=== PATIENT | female | born 1945 | race Caucasian/White ===

== ENCOUNTER 2020-08-23 21:00 | Emergency (ER) | payer MEDICARE, BC ==
[2020-08-23 22:04] LABS: HEMATOCRIT 36.2 % (37.0-47.0); HEMOGLOBIN 11.7 g/dL (12.5-16.0); MEAN CELL VOLUME 83 fl (78-100); MEAN CORPUSCULAR HEMOGLOBIN 27 pg (27-31); MEAN CORPUSCULAR HGB CONC 32 g/dL (33-37); MEAN PLATELET VOLUME 9.8 fl (7.4-10.4); PLATELET COUNT 403 K/mm3 (130-400); RED BLOOD COUNT 4.38 M/mm3 (4.10-5.30); RED CELL DISTRIBUTION WIDTH 14.6 % (11.5-14.5); WHITE BLOOD COUNT 13.6 K/mm3 (4.8-10.8)
[2020-08-23] MEDS ORDERED: LEVOTHYROXINE100 MC1 PO (22:18)
[2020-08-23] MEDS ORDERED: ATORVASTATIN CA40 MG PO (22:18)
[2020-08-23] MEDS ORDERED: VERAPAMIL HCL120 M3 PO (22:18)
[2020-08-23] MEDS ORDERED: LISINOPRIL AND1 TA1 PO (22:18)
[2020-08-23] MEDS ORDERED: XARELTO20 MG PO (22:19)
[2020-08-23 22:23] LABS: ALBUMIN 3.8 g/dL (3.4-4.8); POTASSIUM 4.3 mmol/L (3.5-5.1)
[2020-08-23 22:24] LABS: CALCIUM 9.1 mg/dL (8.3-10.5)
[2020-08-23 22:25] LABS: TOTAL PROTEIN 6.5 g/dL (6.2-8.1)
[2020-08-23 22:27] LABS: TOTAL BILIRUBIN 0.5 mg/dL (0.2-1.2)
[2020-08-23 22:34] LABS: URINE APPEARANCE HAZY; URINE COLOR YELLOW
[2020-08-23 22:35] LABS: LYMPHOCYTE 14 % (20-51)
[2020-08-23 22:35] LABS: PH-URINE 6.5 (5.0 - 8.0); URINE BILIRUBIN NEGATIVE (NEGATIVE); URINE BLOOD NEGATIVE (NEGATIVE); URINE GLUCOSE NEGATIVE (NEGATIVE); URINE KETONE NEGATIVE (NEGATIVE); URINE LEUKOCYTE ESTERASE 1+ (NEGATIVE); URINE NITRATE NEGATIVE (NEGATIVE); URINE PROTEIN(semi-quant) TRACE mg/dL (NEGATIVE); URINE UROBILINOGEN NORMAL (NORMAL); URINE WBC 31-50 /hpf (0-3)
[2020-08-23 22:36] LABS: MONOCYTE 11 % (3-10); NEUTROPHILS 74 % (42-75)
[2020-08-24] MEDS ORDERED: CIPRO500 M1 PO (01:19)
[2020-08-24 01:30] VITALS: BP 126/59
== END 2020-08-24 01:30 | disposition home or self-care (01) ==
LOC: ED 21:00
PROVIDERS: Nurse Practitioner Family
DX: I48.91 Unspecified atrial fibrillation (principal); N39.0 Urinary tract infection, site not specified; Z86.73 Personal history of transient ischemic attack (TIA), and cerebral infarction without residual deficits; Z88.5 Allergy status to narcotic agent; Z79.01 Long term (current) use of anticoagulants
CPT/HCPCS: J7040

== ENCOUNTER → 2020-10-04 | Outpatient (CLI) | payer MEDICARE, BC, OTHER ==
[~2020-10-04] MED LIST: ATORVASTATIN CA40 MG PO; CIPRO500 M1 PO; LEVOTHYROXINE100 MC1 PO; LISINOPRIL AND1 TA1 PO; VERAPAMIL HCL120 M3 PO; XARELTO20 MG PO
== END ==
LOC: LAB 08:57
DX: R10.33 Periumbilical pain (principal)

== ENCOUNTER 2020-10-28 11:41 | Emergency (ER) | payer MEDICARE, BC, OTHER ==
[2020-10-28 12:26] LABS: EOS % 2.3 % (1.0-5.0); HEMATOCRIT 41.3 % (37.0-47.0); HEMOGLOBIN 13.5 g/dL (12.5-16.0); MEAN CELL VOLUME 83 fl (78-100); MEAN CORPUSCULAR HEMOGLOBIN 27 pg (27-31); MEAN CORPUSCULAR HGB CONC 33 g/dL (33-37); PLATELET COUNT 342 K/mm3 (130-400); RED BLOOD COUNT 4.97 M/mm3 (4.10-5.30); RED CELL DISTRIBUTION WIDTH 15.2 % (11.5-14.5); WHITE BLOOD COUNT 7.4 K/mm3 (4.8-10.8)
[2020-10-28 12:27] LABS: EOS # 0.2 (0.04-0.40); LYMPH# 2.1 (1.50-4.00); MONO # 0.7 (0.20-0.80); NEU # 4.6 (1.40-6.50)
[2020-10-28 12:28] LABS: ALBUMIN 3.8 g/dL (3.4-4.8); POTASSIUM 3.5 mmol/L (3.5-5.1)
[2020-10-28 12:29] LABS: CALCIUM 9.5 mg/dL (8.3-10.5)
[2020-10-28 12:30] LABS: GLUCOSE 135 mg/dL (65-105); SODIUM 138 mmol/L (136-145)
[2020-10-28 12:32] LABS: CARBON DIOXIDE 24 mmol/L (23-31); TOTAL BILIRUBIN 0.9 mg/dL (0.2-1.2)
[2020-10-28 12:37] LABS: ALT/SGPT 17 U/L (0-55)
[2020-10-28 12:38] LABS: AST-SGOT 19 U/L (5-34)
[2020-10-28 12:49] LABS: TROPONIN-I < 0.03 ng/mL (<0.030)
[2020-10-28 16:12] LABS: URINE APPEARANCE CLEAR; URINE COLOR YELLOW
[2020-10-28 16:13] LABS: URINE BILIRUBIN NEGATIVE (NEGATIVE); URINE BLOOD NEGATIVE (NEGATIVE); URINE GLUCOSE NEGATIVE (NEGATIVE); URINE KETONE NEGATIVE (NEGATIVE); URINE LEUKOCYTE ESTERASE NEGATIVE (NEGATIVE); URINE NITRATE NEGATIVE (NEGATIVE); URINE PROTEIN(semi-quant) NEGATIVE (NEGATIVE); URINE UROBILINOGEN NORMAL (NORMAL); URINE WBC 0-1 /hpf (0-3)
[2020-10-28 16:33] VITALS: BP 135/72
[2020-10-28] MEDS ORDERED: PROTONIX20 M1 PO (16:34)
== END 2020-10-28 17:04 ==
LOC: ED 11:41
PROVIDERS: Nurse Practitioner
DX: K21.9 Gastro-esophageal reflux disease without esophagitis (principal); Z91.89 Other specified personal risk factors, not elsewhere classified; I48.91 Unspecified atrial fibrillation; I10 Essential (primary) hypertension; E78.5 Hyperlipidemia, unspecified; Z87.891 Personal history of nicotine dependence; Z86.73 Personal history of transient ischemic attack (TIA), and cerebral infarction without residual deficits; Z88.5 Allergy status to narcotic agent; Z88.6 Allergy status to analgesic agent; Z88.8 Allergy status to other drugs, medicaments and biological substances; Z79.01 Long term (current) use of anticoagulants; Z79.890 Hormone replacement therapy

== ENCOUNTER → 2020-10-29 | Outpatient (CLI) | payer MEDICARE, BC, OTHER ==
[2020-10-28 16:33] VITALS: BP 135/72
[~2020-10-29] MED LIST changes: +AFRIN PUMPMIST15 ML NS; +CEPHALEXIN250 MG PO; +CLARITIN10 M1 PO; +MORGIDOX 1X100100 MG PO; +PRILOSEC 20MG20 MG PO; +PROTONIX20 M1 PO; +[UNRECOGNIZED DRUG - OTHER]
== END ==
LOC: RAD 15:45 → VAS 15:58
DX: R07.9 Chest pain, unspecified (principal)

== ENCOUNTER → 2020-11-08 | Outpatient (CLI) | payer MEDICARE, BC, OTHER ==
[2020-10-28 16:33] VITALS: BP 135/72
[2020-11-08 09:42] LABS: POTASSIUM 4.1 mmol/L (3.5-5.1)
[2020-11-08 09:43] LABS: ALBUMIN 4.2 g/dL (3.4-4.8)
[2020-11-08 09:44] LABS: CALCIUM 10.3 mg/dL (8.3-10.5)
[2020-11-08 09:45] LABS: TOTAL PROTEIN 7.7 g/dL (6.2-8.1)
[2020-11-08 09:47] LABS: HEMOGLOBIN 13.6 g/dL (12.5-16.0); MEAN CELL VOLUME 86 fl (78-100); MEAN CORPUSCULAR HEMOGLOBIN 27 pg (27-31); MEAN CORPUSCULAR HGB CONC 32 g/dL (33-37); MEAN PLATELET VOLUME 10.5 fl (7.4-10.4); PLATELET COUNT 338 K/mm3 (130-400); RED BLOOD COUNT 5.01 M/mm3 (4.10-5.30); RED CELL DISTRIBUTION WIDTH 16.3 % (11.5-14.5); TOTAL BILIRUBIN 0.7 mg/dL (0.2-1.2); WHITE BLOOD COUNT 8.9 K/mm3 (4.8-10.8)
[2020-11-08 10:02] LABS: LYMPHOCYTE 26 % (20-51); MONOCYTE 9 % (3-10); NEUTROPHILS 64 % (42-75)
== END ==
LOC: LAB 09:11
PROVIDERS: Physician Assistant
DX: Z00.00 Encounter for general adult medical examination without abnormal findings (principal); E78.5 Hyperlipidemia, unspecified; R73.9 Hyperglycemia, unspecified; E03.9 Hypothyroidism, unspecified; I10 Essential (primary) hypertension

== ENCOUNTER 2020-11-20 09:42 | Outpatient (RCR) | payer MEDICARE, BC, OTHER ==
[~2020-11-20 09:42] MED LIST changes: -AFRIN PUMPMIST15 ML NS; -CEPHALEXIN250 MG PO; -CLARITIN10 M1 PO; -MORGIDOX 1X100100 MG PO; -PRILOSEC 20MG20 MG PO; -[UNRECOGNIZED DRUG - OTHER]
== END 2021-02-18 | disposition home or self-care (01) ==
LOC: PT
DX: R26.9 Unspecified abnormalities of gait and mobility (principal)

== ENCOUNTER → 2020-11-22 | Outpatient (CLI) | payer MEDICARE, BC, OTHER ==
[2020-10-28 16:33] VITALS: BP 135/72
[~2020-11-22] MED LIST changes: +AFRIN PUMPMIST15 ML NS; +CEPHALEXIN250 MG PO; +CLARITIN10 M1 PO; +MORGIDOX 1X100100 MG PO; +PRILOSEC 20MG20 MG PO; +[UNRECOGNIZED DRUG - OTHER]
== END ==
LOC: RAD 13:29
DX: M17.11 Unilateral primary osteoarthritis, right knee (principal); M11.261 Other chondrocalcinosis, right knee; Z96.651 Presence of right artificial knee joint

== ENCOUNTER 2020-12-12 09:16 | Outpatient (RCR) | payer MEDICARE, BC, OTHER ==
[~2020-12-12 09:16] MED LIST changes: -AFRIN PUMPMIST15 ML NS; -CEPHALEXIN250 MG PO; -CLARITIN10 M1 PO; -MORGIDOX 1X100100 MG PO; -PRILOSEC 20MG20 MG PO; -[UNRECOGNIZED DRUG - OTHER]
== END 2020-12-27 15:49 ==
LOC: OPPGERO 09:16
DX: F43.21 Adjustment disorder with depressed mood (principal); F43.10 Post-traumatic stress disorder, unspecified; E03.9 Hypothyroidism, unspecified; I10 Essential (primary) hypertension; I48.91 Unspecified atrial fibrillation; Z90.710 Acquired absence of both cervix and uterus; Z96.659 Presence of unspecified artificial knee joint

== ENCOUNTER 2020-12-30 09:18 | Outpatient (RCR) | payer MEDICARE, BC, OTHER | END 2021-01-24 15:57 | disposition home or self-care (01) | LOC: OPPGERO 09:18 | DX: F43.9 Reaction to severe stress, unspecified (principal); E03.9 Hypothyroidism, unspecified; F41.9 Anxiety disorder, unspecified; G31.84 Mild cognitive impairment of uncertain or unknown etiology; I10 Essential (primary) hypertension; T14.90XA Injury, unspecified, initial encounter; I48.91 Unspecified atrial fibrillation; Z86.73 Personal history of transient ischemic attack (TIA), and cerebral infarction without residual deficits; Z63.4 Disappearance and death of family member; Z87.440 Personal history of urinary (tract) infections; Z86.12 Personal history of poliomyelitis; Z90.710 Acquired absence of both cervix and uterus; Z98.890 Other specified postprocedural states; Z96.659 Presence of unspecified artificial knee joint ==

== ENCOUNTER 2021-01-28 09:48 | Outpatient (RCR) | payer MEDICARE, BC, OTHER | END 2021-02-26 15:27 | disposition home or self-care (01) | LOC: OPPGERO 09:48 | DX: F43.8 Other reactions to severe stress (principal); F43.21 Adjustment disorder with depressed mood; E03.9 Hypothyroidism, unspecified; I10 Essential (primary) hypertension; I48.91 Unspecified atrial fibrillation; Z86.73 Personal history of transient ischemic attack (TIA), and cerebral infarction without residual deficits; Z86.12 Personal history of poliomyelitis; Z98.890 Other specified postprocedural states; Z90.710 Acquired absence of both cervix and uterus; Z96.659 Presence of unspecified artificial knee joint; Z63.4 Disappearance and death of family member; Z87.59 Personal history of other complications of pregnancy, childbirth and the puerperium ==

== ENCOUNTER 2021-02-27 09:16 | Outpatient (RCR) | payer MEDICARE, BC, OTHER | END 2021-03-28 22:27 | disposition home or self-care (01) | LOC: OPPGERO 09:16 | DX: F43.10 Post-traumatic stress disorder, unspecified (principal); F43.21 Adjustment disorder with depressed mood; E03.9 Hypothyroidism, unspecified; I10 Essential (primary) hypertension; I48.91 Unspecified atrial fibrillation; Z86.73 Personal history of transient ischemic attack (TIA), and cerebral infarction without residual deficits; Z90.710 Acquired absence of both cervix and uterus; Z63.4 Disappearance and death of family member ==

== ENCOUNTER 2021-03-19 13:02 | Outpatient (RCR) | payer MEDICARE, BC, OTHER ==
[2021-03-31] MEDS ORDERED: MORGIDOX 1X100100 MG PO (10:53)
[2021-04-02] MEDS ORDERED: PRILOSEC 20MG20 MG PO (13:04)
[2021-05-17] MEDS ORDERED: AFRIN PUMPMIST15 ML NS (22:02)
[2021-05-17] MEDS ORDERED: CLARITIN10 M1 PO (22:03)
[2021-05-17] MEDS ORDERED: [UNRECOGNIZED DRUG - OTHER] (22:08)
[2021-05-18] MEDS ORDERED: CEPHALEXIN250 MG PO (14:46)
== END 2021-06-17 | disposition home or self-care (01) ==
LOC: PT
DX: M62.81 Muscle weakness (generalized) (principal)

== ENCOUNTER 2021-03-31 04:56 | Outpatient (RCR) | payer MEDICARE, BC, OTHER ==
[2021-03-31] MEDS ORDERED: MORGIDOX 1X100100 MG PO (10:53)
[2021-04-02] MEDS ORDERED: PRILOSEC 20MG20 MG PO (13:04)
== END 2021-04-29 15:52 | disposition home or self-care (01) ==
LOC: OPPGERO 04:56
DX: F43.8 Other reactions to severe stress (principal); F43.10 Post-traumatic stress disorder, unspecified; E03.9 Hypothyroidism, unspecified; I10 Essential (primary) hypertension; I48.91 Unspecified atrial fibrillation; Z90.710 Acquired absence of both cervix and uterus; Z98.890 Other specified postprocedural states; Z87.440 Personal history of urinary (tract) infections; Z86.73 Personal history of transient ischemic attack (TIA), and cerebral infarction without residual deficits; Z63.4 Disappearance and death of family member; Z87.59 Personal history of other complications of pregnancy, childbirth and the puerperium

== ENCOUNTER 2021-03-31 07:46 | Emergency (ER) | payer MEDICARE, BC, OTHER ==
[2021-03-31 09:26] LABS: BASO # 0.04 (0.02-0.10); EOS # 0.17 (0.04-0.40); EOS % 1.2 % (1.0-5.0); HEMATOCRIT 43.5 % (37.0-47.0); LYMPH# 1.89 (1.50-4.00); MEAN CELL VOLUME 86 fl (78-100); MEAN CORPUSCULAR HEMOGLOBIN 28 pg (27-31); MEAN CORPUSCULAR HGB CONC 32 g/dL (33-37); MEAN PLATELET VOLUME 10.1 fl (7.4-10.4); MONO # 1.05 (0.20-0.80); PLATELET COUNT 386 K/mm3 (130-400); RED BLOOD COUNT 5.06 M/mm3 (4.10-5.30); RED CELL DISTRIBUTION WIDTH 14.2 % (11.5-14.5); WHITE BLOOD COUNT 13.8 K/mm3 (4.8-10.8)
[2021-03-31 09:31] LABS: ALBUMIN 4.1 g/dL (3.4-4.8)
[2021-03-31 09:32] LABS: POTASSIUM 3.8 mmol/L (3.5-5.1); SODIUM 136 mmol/L (136-145)
[2021-03-31 09:33] LABS: CALCIUM 10.1 mg/dL (8.3-10.5)
[2021-03-31 09:34] LABS: GLUCOSE 133 mg/dL (65-105); TOTAL PROTEIN 7.6 g/dL (6.2-8.1)
[2021-03-31 09:35] LABS: CARBON DIOXIDE 24 mmol/L (23-31)
[2021-03-31 09:36] LABS: TOTAL BILIRUBIN 0.7 mg/dL (0.2-1.2)
[2021-03-31 09:39] LABS: AST-SGOT 18 U/L (5-34)
[2021-03-31 09:39] LABS: URINE APPEARANCE CLOUDY; URINE COLOR YELLOW
[2021-03-31 09:40] LABS: ALT/SGPT 15 U/L (0-55)
[2021-03-31 09:40] LABS: URINE BILIRUBIN NEGATIVE (NEGATIVE); URINE BLOOD TRACE (NEGATIVE); URINE GLUCOSE NEGATIVE (NEGATIVE); URINE KETONE NEGATIVE (NEGATIVE); URINE LEUKOCYTE ESTERASE 1+ (NEGATIVE); URINE NITRATE NEGATIVE (NEGATIVE); URINE PROTEIN(semi-quant) TRACE mg/dL (NEGATIVE); URINE UROBILINOGEN NORMAL (NORMAL)
[2021-03-31 09:41] LABS: LIPASE 61 U/L (8-78)
[2021-03-31 09:41] LABS: URINE MUCUS PRESENT (NOT PRESENT)
[2021-03-31 09:51] LABS: TROPONIN-I < 0.03 ng/mL (<0.030)
[2021-03-31] MEDS ORDERED: MORGIDOX 1X100100 MG PO (10:53)
[2021-03-31 11:44] VITALS: BP 108/56
== END 2021-03-31 10:59 | disposition home or self-care (01) ==
LOC: ED 07:46
PROVIDERS: Family Medicine
DX: N39.0 Urinary tract infection, site not specified (principal); K30 Functional dyspepsia; I48.91 Unspecified atrial fibrillation; I10 Essential (primary) hypertension; E03.9 Hypothyroidism, unspecified; Z90.710 Acquired absence of both cervix and uterus; Z79.01 Long term (current) use of anticoagulants; Z79.899 Other long term (current) drug therapy; Z79.890 Hormone replacement therapy

== ENCOUNTER 2021-04-02 11:34 | Emergency (ER) | payer MEDICARE, BC, OTHER ==
[~2021-04-02 11:34] MED LIST changes: +MORGIDOX 1X100100 MG PO
[2021-04-02 12:14] LABS: BASO # 0.05 (0.02-0.10); EOS # 0.18 (0.04-0.40); EOS % 2.1 % (1.0-5.0); HEMATOCRIT 40.5 % (37.0-47.0); HEMOGLOBIN 13.2 g/dL (12.5-16.0); MEAN CELL VOLUME 85 fl (78-100); MEAN CORPUSCULAR HEMOGLOBIN 28 pg (27-31); MEAN CORPUSCULAR HGB CONC 33 g/dL (33-37); MEAN PLATELET VOLUME 9.8 fl (7.4-10.4); MONO # 0.85 (0.20-0.80); NEU # 5.45 (1.40-6.50); PLATELET COUNT 347 K/mm3 (130-400); RED BLOOD COUNT 4.76 M/mm3 (4.10-5.30); RED CELL DISTRIBUTION WIDTH 14.1 % (11.5-14.5); WHITE BLOOD COUNT 8.4 K/mm3 (4.8-10.8)
[2021-04-02 12:21] LABS: POTASSIUM 4.1 mmol/L (3.5-5.1)
[2021-04-02 12:23] LABS: CALCIUM 10.2 mg/dL (8.3-10.5)
[2021-04-02 12:24] LABS: TOTAL PROTEIN 7.5 g/dL (6.2-8.1)
[2021-04-02 12:26] LABS: TOTAL BILIRUBIN 0.8 mg/dL (0.2-1.2)
[2021-04-02] MEDS ORDERED: PRILOSEC 20MG20 MG PO (13:04)
[2021-04-02 13:38] VITALS: BP 131/62
== END 2021-04-02 13:40 | disposition home or self-care (01) ==
LOC: ED 11:34
PROVIDERS: Physician Assistant
DX: N39.0 Urinary tract infection, site not specified (principal); K59.00 Constipation, unspecified; K30 Functional dyspepsia; E03.9 Hypothyroidism, unspecified; I48.91 Unspecified atrial fibrillation; Z79.01 Long term (current) use of anticoagulants; Z79.890 Hormone replacement therapy

== ENCOUNTER 2021-04-30 15:52 | Outpatient (RCR) | payer MEDICARE, BC, OTHER ==
[~2021-04-30 15:52] MED LIST changes: +PRILOSEC 20MG20 MG PO
[2021-05-17] MEDS ORDERED: AFRIN PUMPMIST15 ML NS (22:02)
[2021-05-17] MEDS ORDERED: CLARITIN10 M1 PO (22:03)
[2021-05-17] MEDS ORDERED: [UNRECOGNIZED DRUG - OTHER] (22:08)
[2021-05-18] MEDS ORDERED: CEPHALEXIN250 MG PO (14:46)
== END 2021-05-29 13:53 | disposition home or self-care (01) ==
LOC: OPPGERO 15:52
DX: F43.8 Other reactions to severe stress (principal); Z82.49 Family history of ischemic heart disease and other diseases of the circulatory system; Z63.4 Disappearance and death of family member; E03.9 Hypothyroidism, unspecified; I10 Essential (primary) hypertension; I48.91 Unspecified atrial fibrillation; Z86.12 Personal history of poliomyelitis; Z86.73 Personal history of transient ischemic attack (TIA), and cerebral infarction without residual deficits; Z90.710 Acquired absence of both cervix and uterus; Z96.659 Presence of unspecified artificial knee joint

== ENCOUNTER 2021-05-17 21:34 | Emergency (ER) | payer MEDICARE, BC, OTHER ==
[~2021-05-17] VITALS: Ht 152.4 cm; Wt 72.2 kg
[2021-05-17] MEDS ORDERED: AFRIN PUMPMIST15 ML NS (22:02)
[2021-05-17] MEDS ORDERED: CLARITIN10 M1 PO (22:03)
[2021-05-17] MEDS ORDERED: [UNRECOGNIZED DRUG - OTHER] (22:08)
[2021-05-17 22:59] VITALS: BP 141/61
[2021-05-18] MEDS ORDERED: CEPHALEXIN250 MG PO (14:46)
== END 2021-05-17 22:51 | disposition home or self-care (01) ==
LOC: ED 21:34
DX: R04.0 Epistaxis (principal); J34.89 Other specified disorders of nose and nasal sinuses; I48.91 Unspecified atrial fibrillation; I10 Essential (primary) hypertension; E78.5 Hyperlipidemia, unspecified; Z87.891 Personal history of nicotine dependence; Z79.01 Long term (current) use of anticoagulants; Z79.899 Other long term (current) drug therapy

== ENCOUNTER 2021-05-18 14:04 | Emergency (ER) | payer MEDICARE, BC, OTHER ==
[~2021-05-18 14:04] MED LIST changes: +AFRIN PUMPMIST15 ML NS; +CLARITIN10 M1 PO; +[UNRECOGNIZED DRUG - OTHER]
[2021-05-18] MEDS ORDERED: CEPHALEXIN250 MG PO (14:46)
[2021-05-18 14:54] VITALS: BP 147/78
== END 2021-05-18 14:53 | disposition home or self-care (01) ==
LOC: ED 14:04
DX: R04.0 Epistaxis (principal); Z79.01 Long term (current) use of anticoagulants
CPT/HCPCS: 19897

== ENCOUNTER 2021-05-19 19:05 | Emergency (ER) | payer MEDICARE, BC, OTHER ==
[~2021-05-19] VITALS: Ht 162.6 cm; Wt 68.1 kg
[~2021-05-19 19:05] MED LIST changes: +CEPHALEXIN250 MG PO
[2021-05-19 19:53] VITALS: BP 104/59
== END 2021-05-19 19:53 | disposition home or self-care (01) ==
LOC: ED 19:05
DX: R04.0 Epistaxis (principal); J34.89 Other specified disorders of nose and nasal sinuses; Z79.01 Long term (current) use of anticoagulants; Z86.73 Personal history of transient ischemic attack (TIA), and cerebral infarction without residual deficits

== ENCOUNTER 2021-05-30 09:46 | Outpatient (RCR) | payer MEDICARE, BC, OTHER | END 2021-06-29 18:03 | disposition home or self-care (01) | LOC: OPPGERO 09:46 | DX: F43.8 Other reactions to severe stress (principal); F91.8 Other conduct disorders; E03.9 Hypothyroidism, unspecified; I10 Essential (primary) hypertension; I48.91 Unspecified atrial fibrillation; N39.0 Urinary tract infection, site not specified; Z90.710 Acquired absence of both cervix and uterus; Z96.659 Presence of unspecified artificial knee joint; Z87.59 Personal history of other complications of pregnancy, childbirth and the puerperium ==

== ENCOUNTER 2021-07-30 15:56 | Outpatient (RCR) | payer MEDICARE, BC, OTHER | END 2021-08-28 12:38 | disposition home or self-care (01) | LOC: OPPGERO 15:56 | DX: F43.8 Other reactions to severe stress (principal) ==

== ENCOUNTER → 2021-08-15 | Outpatient (CLI) | payer MEDICARE, BC, OTHER | LOC: LAB 18:28 | DX: N39.0 Urinary tract infection, site not specified (principal) ==

== ENCOUNTER 2021-09-16 10:59 | Outpatient (RCR) | payer MEDICARE, BC, OTHER | END 2021-09-29 | disposition home or self-care (01) | LOC: PT | DX: Z74.09 Other reduced mobility (principal) ==

== ENCOUNTER 2021-11-02 12:58 | Emergency (ER) | payer MEDICARE, BC, OTHER ==
[~2021-11-02] VITALS: Ht 162.6 cm; Wt 68.5 kg
[2021-11-02 13:07] VITALS: BP 137/66
[2021-11-02 13:56] LABS: HEMATOCRIT 39.1 % (37.0-47.0); HEMOGLOBIN 12.7 g/dL (12.5-16.0); RED BLOOD COUNT 4.58 M/mm3 (4.10-5.30)
[2021-11-02 14:11] LABS: ALBUMIN 3.8 g/dL (3.4-4.8)
[2021-11-02 14:12] LABS: POTASSIUM 3.9 mmol/L (3.5-5.1)
[2021-11-02 14:13] LABS: CALCIUM 9.8 mg/dL (8.3-10.5)
[2021-11-02 14:14] LABS: TOTAL PROTEIN 7.1 g/dL (6.2-8.1)
[2021-11-02 14:16] LABS: TOTAL BILIRUBIN 0.6 mg/dL (0.2-1.2)
== END 2021-11-02 14:43 | disposition home or self-care (01) ==
LOC: ED 12:58
PROVIDERS: Family Medicine
DX: J34.89 Other specified disorders of nose and nasal sinuses (principal); R10.11 Right upper quadrant pain; J32.9 Chronic sinusitis, unspecified; R04.0 Epistaxis; Z79.01 Long term (current) use of anticoagulants

== ENCOUNTER → 2022-02-05 | Outpatient (CLI) | payer MEDICARE, BC, OTHER ==
[2022-02-05 10:22] LABS: BASO # 0.04 K/mm3 (0.02-0.10); EOS # 0.21 K/mm3 (0.04-0.40); EOS % 2.2 % (1.0-5.0); HEMATOCRIT 40.9 % (37.0-47.0); HEMOGLOBIN 13.3 g/dL (12.5-16.0); LYMPH# 2.44 K/mm3 (1.50-4.00); MEAN CELL VOLUME 86 fl (78-100); MEAN CORPUSCULAR HEMOGLOBIN 28 pg (27-31); MEAN CORPUSCULAR HGB CONC 33 g/dL (33-37); MEAN PLATELET VOLUME 9.8 fl (7.4-10.4); MONO # 1.03 K/mm3 (0.20-0.80); PLATELET COUNT 344 K/mm3 (130-400); RED BLOOD COUNT 4.76 M/mm3 (4.10-5.30); RED CELL DISTRIBUTION WIDTH 14.3 % (11.5-14.5); WHITE BLOOD COUNT 9.6 K/mm3 (4.8-10.8)
[2022-02-05 10:42] LABS: ALBUMIN 4.1 g/dL (3.4-4.8); POTASSIUM 4.4 mmol/L (3.5-5.1)
[2022-02-05 10:43] LABS: CALCIUM 10.4 mg/dL (8.3-10.5)
[2022-02-05 10:44] LABS: TOTAL PROTEIN 7.5 g/dL (6.2-8.1)
[2022-02-05 10:46] LABS: TOTAL BILIRUBIN 0.7 mg/dL (0.2-1.2)
== END ==
LOC: LAB 10:01
PROVIDERS: Physician Assistant
DX: Z00.00 Encounter for general adult medical examination without abnormal findings (principal); Z13.1 Encounter for screening for diabetes mellitus; E78.5 Hyperlipidemia, unspecified; E03.9 Hypothyroidism, unspecified; K90.9 Intestinal malabsorption, unspecified

== ENCOUNTER → 2022-02-13 | Outpatient (CLI) | payer MEDICARE, BC, OTHER ==
[2022-02-13 07:16] LABS: POTASSIUM 4.1 mmol/L (3.5-5.1)
[2022-02-13 07:17] LABS: CALCIUM 10.2 mg/dL (8.3-10.5)
== END ==
LOC: LAB 06:44
PROVIDERS: Physician Assistant
DX: N28.9 Disorder of kidney and ureter, unspecified (principal)

== ENCOUNTER → 2022-02-18 | Outpatient (CLI) | payer MEDICARE, BC ==
[~2022-02-18] MED LIST changes: +LISINOPRIL20 MG PO
== END ==
LOC: RAD 09:01 → MAMMO 09:15 → RAD 09:15
DX: M81.0 Age-related osteoporosis without current pathological fracture (principal)

== ENCOUNTER → 2022-02-18 | Outpatient (CLI) | payer MEDICARE, BC, OTHER ==
[~2022-02-18] MED LIST changes: -LISINOPRIL20 MG PO
== END ==
LOC: MAMMO 09:02
DX: Z12.31 Encounter for screening mammogram for malignant neoplasm of breast (principal); Z13.820 Encounter for screening for osteoporosis

== ENCOUNTER → 2022-02-26 | Outpatient (CLI) | payer MEDICARE, BC, OTHER ==
[2022-02-26 18:01] LABS: BASO # 0.04 K/mm3 (0.02-0.10); EOS # 0.17 K/mm3 (0.04-0.40); EOS % 1.4 % (1.0-5.0); HEMATOCRIT 39.1 % (37.0-47.0); HEMOGLOBIN 12.6 g/dL (12.5-16.0); LYMPH# 1.71 K/mm3 (1.50-4.00); MEAN CELL VOLUME 87 fl (78-100); MEAN CORPUSCULAR HEMOGLOBIN 28 pg (27-31); MEAN CORPUSCULAR HGB CONC 32 g/dL (33-37); MEAN PLATELET VOLUME 10.1 fl (7.4-10.4); MONO # 1.36 K/mm3 (0.20-0.80); NEU # 8.76 K/mm3 (1.40-6.50); PLATELET COUNT 318 K/mm3 (130-400); RED BLOOD COUNT 4.51 M/mm3 (4.10-5.30); RED CELL DISTRIBUTION WIDTH 14.3 % (11.5-14.5); WHITE BLOOD COUNT 12.1 K/mm3 (4.8-10.8)
[2022-02-26 18:12] LABS: POTASSIUM 4.1 mmol/L (3.5-5.1)
[2022-02-26 18:14] LABS: CALCIUM 10.1 mg/dL (8.3-10.5)
[2022-02-26 18:15] LABS: TOTAL PROTEIN 7.7 g/dL (6.2-8.1)
[2022-02-26 18:17] LABS: TOTAL BILIRUBIN 0.9 mg/dL (0.2-1.2)
== END ==
LOC: LAB 17:40
PROVIDERS: Nurse Practitioner Family
DX: M79.672 Pain in left foot (principal); M79.671 Pain in right foot; R60.0 Localized edema; M79.89 Other specified soft tissue disorders

== ENCOUNTER 2022-03-16 11:03 | Outpatient (RCR) | payer MEDICARE, BC, OTHER ==
[2022-03-23] MEDS ORDERED: LISINOPRIL20 MG PO (03:29)
[2022-03-23] MEDS ORDERED: CEPHALEXIN250 MG PO (04:21)
== END 2022-03-29 | disposition still patient (30) ==
LOC: PT
DX: R26.9 Unspecified abnormalities of gait and mobility (principal)

== ENCOUNTER 2022-03-23 03:00 | Emergency (ER) | payer MEDICARE, BC, OTHER ==
[~2022-03-23] VITALS: Ht 162.6 cm; Wt 70.1 kg
[2022-03-23 03:13] VITALS: BP 185/81
[2022-03-23] MEDS ORDERED: LISINOPRIL20 MG PO (03:29)
[2022-03-23] MEDS ORDERED: CEPHALEXIN250 MG PO (04:21)
== END 2022-03-23 04:54 | disposition home or self-care (01) ==
LOC: ED 03:00
DX: R04.0 Epistaxis (principal); J34.89 Other specified disorders of nose and nasal sinuses; Z79.01 Long term (current) use of anticoagulants
CPT/HCPCS: 15945

== ENCOUNTER 2022-03-30 07:56 | Outpatient (RCR) | payer MEDICARE, BC, OTHER ==
[~2022-03-30 07:56] MED LIST changes: +LISINOPRIL20 MG PO
== END 2022-04-29 | disposition home or self-care (01) ==
LOC: PT
DX: R26.9 Unspecified abnormalities of gait and mobility (principal)

== ENCOUNTER 2022-03-31 16:10 | Emergency (ER) | payer MEDICARE, BC, OTHER ==
[~2022-03-31] VITALS: Ht 162.6 cm; Wt 70.8 kg
[2022-03-31 21:08] VITALS: BP 152/83
== END 2022-03-31 21:08 | disposition home or self-care (01) ==
LOC: ED 16:10
DX: R04.0 Epistaxis (principal); I10 Essential (primary) hypertension; Z87.891 Personal history of nicotine dependence

== ENCOUNTER 2022-05-01 08:19 | Outpatient (RCR) | payer MEDICARE, BC, OTHER | END 2022-05-26 15:05 | disposition still patient (30) | LOC: PT 08:19 | DX: R26.9 Unspecified abnormalities of gait and mobility (principal) ==

== ENCOUNTER → 2022-05-09 | Outpatient (CLI) | payer MEDICARE, BC, OTHER | LOC: RAD 16:32 | DX: M25.561 Pain in right knee (principal) ==

== ENCOUNTER → 2022-05-22 | Outpatient (CLI) | payer MEDICARE, BC, OTHER ==
[2022-05-22 16:30] LABS: BASO # 0.06 K/mm3 (0.02-0.10); EOS # 0.17 K/mm3 (0.04-0.40); HEMATOCRIT 40.5 % (37.0-47.0); HEMOGLOBIN 12.6 g/dL (12.5-16.0); LYMPH# 2.22 K/mm3 (1.50-4.00); MEAN CELL VOLUME 82 fl (78-100); MEAN CORPUSCULAR HEMOGLOBIN 26 pg (27-31); MEAN CORPUSCULAR HGB CONC 31 g/dL (33-37); MEAN PLATELET VOLUME 9.3 fl (7.4-10.4); MONO # 1.12 K/mm3 (0.20-0.80); NEU # 4.94 K/mm3 (1.40-6.50); PLATELET COUNT 429 K/mm3 (130-400); RED BLOOD COUNT 4.92 M/mm3 (4.10-5.30); WHITE BLOOD COUNT 8.5 K/mm3 (4.8-10.8)
[2022-05-22 16:49] LABS: ALBUMIN 4.2 g/dL (3.4-4.8); POTASSIUM 4.5 mmol/L (3.5-5.1)
[2022-05-22 16:51] LABS: CALCIUM 10.4 mg/dL (8.3-10.5)
[2022-05-22 16:52] LABS: TOTAL PROTEIN 7.8 g/dL (6.2-8.1)
[2022-05-22 16:54] LABS: TOTAL BILIRUBIN 0.4 mg/dL (0.2-1.2)
[2022-05-22 17:00] LABS: PARTIAL THROMBOPLASTIN TIME 37.1 SECONDS (21.0-32.0); PROTHROMBIN TIME 14.1 SECONDS (9.0-12.0)
== END ==
LOC: LAB 16:17
PROVIDERS: Physician Assistant
DX: Z01.818 Encounter for other preprocedural examination (principal); H26.9 Unspecified cataract; I48.91 Unspecified atrial fibrillation; I10 Essential (primary) hypertension

== ENCOUNTER → 2022-06-25 | Outpatient (CLI) | payer MEDICARE, BC, OTHER | LOC: RAD 08:29 | DX: M17.12 Unilateral primary osteoarthritis, left knee (principal); M11.262 Other chondrocalcinosis, left knee; Z96.652 Presence of left artificial knee joint ==

== ENCOUNTER → 2022-09-18 | Outpatient (CLI) | payer MEDICARE, BC, OTHER ==
[2022-09-18 17:40] LABS: BASO # 0.02 K/mm3 (0.02-0.10); HEMATOCRIT 44.6 % (37.0-47.0); HEMOGLOBIN 14.1 g/dL (12.5-16.0); LYMPH# 2.74 K/mm3 (1.50-4.00); MEAN CELL VOLUME 84 fl (78-100); MEAN CORPUSCULAR HEMOGLOBIN 27 pg (27-31); MEAN CORPUSCULAR HGB CONC 32 g/dL (33-37); MEAN PLATELET VOLUME 9.8 fl (7.4-10.4); MONO # 1.13 K/mm3 (0.20-0.80); NEU # 5.66 K/mm3 (1.40-6.50); PLATELET COUNT 375 K/mm3 (130-400); RED BLOOD COUNT 5.32 M/mm3 (4.10-5.30); RED CELL DISTRIBUTION WIDTH 17.6 % (11.5-14.5); WHITE BLOOD COUNT 9.8 K/mm3 (4.8-10.8)
[2022-09-18 17:59] LABS: ALBUMIN 4.1 g/dL (3.4-4.8)
[2022-09-18 18:00] LABS: POTASSIUM 3.9 mmol/L (3.5-5.1)
[2022-09-18 18:01] LABS: CALCIUM 10.2 mg/dL (8.3-10.5)
[2022-09-18 18:02] LABS: TOTAL PROTEIN 7.6 g/dL (6.2-8.1)
[2022-09-18 18:04] LABS: TOTAL BILIRUBIN 0.4 mg/dL (0.2-1.2)
== END ==
LOC: LAB 17:23
PROVIDERS: Physician Assistant
DX: Z01.812 Encounter for preprocedural laboratory examination (principal); H26.9 Unspecified cataract; I48.91 Unspecified atrial fibrillation; I63.9 Cerebral infarction, unspecified; E03.9 Hypothyroidism, unspecified; I10 Essential (primary) hypertension

== ENCOUNTER → 2022-09-23 | Day surgery (SDC) | payer MEDICARE, BC, OTHER | LOC: MSO 11:01 | DX: H25.811 Combined forms of age-related cataract, right eye (principal) | CPT/HCPCS: 00142; J0171; J2250; V2632 ==

== ENCOUNTER → 2022-10-07 | Outpatient (CLI) | payer MEDICARE, BC, OTHER ==
[2022-10-07 11:09] LABS: BASO # 0.03 K/mm3 (0.02-0.10); EOS # 0.14 K/mm3 (0.04-0.40); EOS % 1.5 % (1.0-5.0); HEMATOCRIT 44.9 % (37.0-47.0); HEMOGLOBIN 14.3 g/dL (12.5-16.0); LYMPH# 1.73 K/mm3 (1.50-4.00); MEAN CELL VOLUME 86 fl (78-100); MEAN CORPUSCULAR HEMOGLOBIN 27 pg (27-31); MEAN CORPUSCULAR HGB CONC 32 g/dL (33-37); MEAN PLATELET VOLUME 9.8 fl (7.4-10.4); MONO # 0.73 K/mm3 (0.20-0.80); NEU # 6.44 K/mm3 (1.40-6.50); PLATELET COUNT 347 K/mm3 (130-400); RED BLOOD COUNT 5.23 M/mm3 (4.10-5.30); RED CELL DISTRIBUTION WIDTH 16.8 % (11.5-14.5); WHITE BLOOD COUNT 9.1 K/mm3 (4.8-10.8)
[2022-10-07 11:16] LABS: ALBUMIN 4.2 g/dL (3.4-4.8); POTASSIUM 4.9 mmol/L (3.5-5.1)
[2022-10-07 11:17] LABS: CALCIUM 10.6 mg/dL (8.3-10.5)
[2022-10-07 11:18] LABS: TOTAL PROTEIN 7.6 g/dL (6.2-8.1)
[2022-10-07 11:20] LABS: TOTAL BILIRUBIN 0.8 mg/dL (0.2-1.2)
[2022-10-07 12:42] LABS: ERYTHROCYTE SEDIMENTATION RATE 40 mm/hr (0-30)
== END ==
LOC: LAB 09:44
PROVIDERS: Nurse Practitioner
DX: S99.922A Unspecified injury of left foot, initial encounter (principal); R41.0 Disorientation, unspecified; R31.9 Hematuria, unspecified; X58.XXXA Exposure to other specified factors, initial encounter

== ENCOUNTER 2023-10-26 13:10 | Outpatient (RCR) | payer MEDICARE, BC, OTHER ==
[~2023-10-26 13:10] MED LIST changes: +FOSAMAX 70MG TA70 MG PO; +TRAMADOL 50 MG TAB PO
[2023-10-30] MEDS ORDERED: CEFDINIR300 MG PO (08:29)
[2023-10-30] MEDS ORDERED: PROAIR HFA0.09 MG/AC IH (08:29)
[2023-10-30] MEDS ORDERED: ELIQUIS5 MG PO (08:29)
[2023-10-30] MEDS ORDERED: CLOPIDOGREL75 M2 PO (08:29)
[2023-10-30] MEDS ORDERED: METOPROLOL SUCC25 M1 PO (08:30)
[2023-10-30] MEDS ORDERED: ISOSORBIDE30 MG PO (08:30)
[2023-10-30] MEDS ORDERED: LOSARTAN POTASS25 MG PO (08:30)
[2023-10-30] MEDS ORDERED: NITROGLYCERIN0.4 M1 SL (08:31)
== END 2023-10-28 | disposition home or self-care (01) ==
LOC: CARDREHAB
DX: Z48.812 Encounter for surgical aftercare following surgery on the circulatory system (principal); Z95.5 Presence of coronary angioplasty implant and graft; I21.9 Acute myocardial infarction, unspecified; I48.91 Unspecified atrial fibrillation; I50.9 Heart failure, unspecified

== ENCOUNTER → 2023-11-17 | Outpatient (CLI) | payer MEDICARE, BC, OTHER ==
[~2023-11-17] MED LIST changes: +CEFDINIR300 MG PO; +CLOPIDOGREL75 M2 PO; +ELIQUIS5 MG PO; +ISOSORBIDE30 MG PO; +LOSARTAN POTASS25 MG PO; +METOPROLOL SUCC25 M1 PO; +NITROGLYCERIN0.4 M1 SL; +PROAIR HFA0.09 MG/AC IH
== END ==
LOC: RAD 09:32
DX: M19.042 Primary osteoarthritis, left hand (principal); M19.041 Primary osteoarthritis, right hand

== ENCOUNTER 2023-11-30 11:07 | Outpatient (RCR) | payer MEDICARE, BC, OTHER | END 2023-12-28 | disposition home or self-care (01) | LOC: CARDREHAB | DX: Z48.812 Encounter for surgical aftercare following surgery on the circulatory system (principal); Z95.5 Presence of coronary angioplasty implant and graft; I25.2 Old myocardial infarction ==

== ENCOUNTER 2023-12-29 12:58 | Outpatient (RCR) | payer MEDICARE, BC, OTHER | END 2024-01-28 | disposition home or self-care (01) | LOC: CARDREHAB | DX: Z48.812 Encounter for surgical aftercare following surgery on the circulatory system (principal); Z95.5 Presence of coronary angioplasty implant and graft; I25.2 Old myocardial infarction; I50.9 Heart failure, unspecified; I48.91 Unspecified atrial fibrillation ==

== ENCOUNTER 2024-04-26 14:56 | Emergency (ER) | payer MEDICARE, BC, OTHER ==
[~2024-04-26] VITALS: Ht 152.4 cm; Wt 64.5 kg
[2024-04-26] MEDS ORDERED: NS 1,000 ML IV SCH (15:15)
[2024-04-26 15:19] LABS: BASO # 0.05 K/mm3 (0.02-0.10); EOS # 0.22 K/mm3 (0.04-0.40); EOS % 2.4 % (1.0-5.0); HEMOGLOBIN 11.3 g/dL (12.5-16.0); LYMPH# 1.47 K/mm3 (1.50-4.00); MEAN CELL VOLUME 77 fl (78-100); MEAN CORPUSCULAR HEMOGLOBIN 24 pg (27-31); MEAN CORPUSCULAR HGB CONC 31 g/dL (33-37); MEAN PLATELET VOLUME 9.4 fl (7.4-10.4); NEU # 6.49 K/mm3 (1.40-6.50); PLATELET COUNT 392 K/mm3 (130-400); RED BLOOD COUNT 4.68 M/mm3 (4.10-5.30); RED CELL DISTRIBUTION WIDTH 16.9 % (11.5-14.5); WHITE BLOOD COUNT 9.1 K/mm3 (4.8-10.8)
[2024-04-26] MEDS ORDERED: traMADol 50 MG TAB PO ONE (15:30)
[2024-04-26 15:33] LABS: SODIUM 138 mmol/L (136-145)
[2024-04-26 15:34] LABS: CALCIUM 9.8 mg/dL (8.3-10.5)
[2024-04-26 15:35] LABS: GLUCOSE 114 mg/dL (65-105); TOTAL PROTEIN 7.1 g/dL (6.2-8.1)
[2024-04-26 15:36] LABS: CARBON DIOXIDE 22 mmol/L (23-31)
[2024-04-26 15:37] LABS: TOTAL BILIRUBIN 0.3 mg/dL (0.2-1.2)
[2024-04-26 15:41] LABS: AST-SGOT 17 U/L (5-34)
[2024-04-26 15:42] LABS: ALT/SGPT 14 U/L (0-55)
[2024-04-26 15:48] LABS: TROPONIN-I < 0.030 ng/mL (0.00-0.033)
[2024-04-26 16:28] VITALS: BP 141/85
== END 2024-04-26 16:29 | disposition home or self-care (01) ==
LOC: ED 14:56
PROVIDERS: Family Medicine
DX: N17.9 Acute kidney failure, unspecified (principal); R07.89 Other chest pain
CPT/HCPCS: J7030

== ENCOUNTER 2024-05-02 08:35 | Outpatient (RCR) | payer MEDICARE, BC, OTHER | END 2024-05-24 10:20 | disposition home or self-care (01) | LOC: OT 08:35 | DX: Z71.9 Counseling, unspecified (principal) ==

== ENCOUNTER 2024-07-04 12:45 | Outpatient (RCR) | payer MEDICARE, BC, OTHER | END 2024-07-29 | disposition home or self-care (01) | LOC: PT | DX: Z71.9 Counseling, unspecified (principal); R26.81 Unsteadiness on feet ==

== ENCOUNTER → 2024-07-18 | Outpatient (CLI) | payer MEDICARE, BC, OTHER | LOC: LAB 15:02 | DX: Z12.11 Encounter for screening for malignant neoplasm of colon (principal) ==

== ENCOUNTER → 2024-07-21 | Outpatient (CLI) | payer MEDICARE, BC, OTHER | LOC: LAB 13:59 | DX: Z12.11 Encounter for screening for malignant neoplasm of colon (principal) ==

== ENCOUNTER 2024-10-20 15:40 | Emergency (ER) | payer MEDICARE, BC, OTHER ==
[~2024-10-20] VITALS: Ht 152.4 cm; Wt 60.1 kg
[2024-10-20 16:22] LABS: BASO # 0.03 K/mm3 (0.02-0.10); EOS # 0.09 K/mm3 (0.04-0.40); HEMATOCRIT 38.3 % (37.0-47.0); HEMOGLOBIN 12.2 g/dL (12.5-16.0); MEAN CELL VOLUME 80 fl (78-100); MEAN CORPUSCULAR HEMOGLOBIN 26 pg (27-31); MEAN CORPUSCULAR HGB CONC 32 g/dL (33-37); MEAN PLATELET VOLUME 9.7 fl (7.4-10.4); MONO # 0.79 K/mm3 (0.20-0.80); NEU # 6.29 K/mm3 (1.40-6.50); PLATELET COUNT 372 K/mm3 (130-400); RED BLOOD COUNT 4.78 M/mm3 (4.10-5.30); RED CELL DISTRIBUTION WIDTH 15.4 % (11.5-14.5); WHITE BLOOD COUNT 8.7 K/mm3 (4.8-10.8)
[2024-10-20 16:36] LABS: ALBUMIN 4.2 g/dL (3.4-4.8)
[2024-10-20 16:37] LABS: CALCIUM 10.3 mg/dL (8.3-10.5)
[2024-10-20 16:38] LABS: TOTAL PROTEIN 7.7 g/dL (6.2-8.1)
[2024-10-20 16:40] LABS: TOTAL BILIRUBIN 0.3 mg/dL (0.2-1.2)
[2024-10-20 16:41] LABS: URINE WBC 0 /hpf (0-3)
[2024-10-20 16:57] LABS: URINE APPEARANCE CLEAR (CLEAR); URINE BILIRUBIN NEGATIVE (NEGATIVE); URINE BLOOD NEGATIVE (NEGATIVE); URINE COLOR YELLOW (YELLOW); URINE GLUCOSE NEGATIVE (NEGATIVE); URINE LEUKOCYTE ESTERASE NEGATIVE (NEGATIVE); URINE NITRATE NEGATIVE (NEGATIVE); URINE PROTEIN(semi-quant) 3+ (NEGATIVE)
[2024-10-20 16:58] LABS: URINE KETONE TRACE (NEGATIVE)
[2024-10-20] MEDS ORDERED: CEPHALEXIN500 M1 PO (17:15)
[2024-10-20] MEDS ORDERED: Cephalexin 500 MG CAP PO ONE (17:15)
[2024-10-20 18:55] VITALS: BP 132/81
== END 2024-10-20 19:00 | disposition home or self-care (01) ==
LOC: ED 15:40
PROVIDERS: Family Medicine
DX: N39.0 Urinary tract infection, site not specified (principal); Z86.73 Personal history of transient ischemic attack (TIA), and cerebral infarction without residual deficits; Z95.5 Presence of coronary angioplasty implant and graft; Z79.01 Long term (current) use of anticoagulants; Z79.02 Long term (current) use of antithrombotics/antiplatelets
CPT/HCPCS: J7120

== ENCOUNTER → 2024-11-09 | Outpatient (CLI) | payer MEDICARE, BC, OTHER ==
[~2024-11-09] MED LIST changes: +CEPHALEXIN500 M1 PO
== END ==
LOC: LAB 10:15
DX: Z13.1 Encounter for screening for diabetes mellitus (principal); M54.6 Pain in thoracic spine